=== PATIENT | male | born 1955 | race Caucasian/White ===

== ENCOUNTER 2017-04-21 10:37 | Outpatient (CLI) | payer OTHER ==
[~2017-04-21] VITALS: Ht 180.3 cm; Wt 104.5 kg
--- NOTE | ~2017-04-21 | HEMODYNAMI ---
PATIENT:BAKARI JOYA MEDICAL RECORD: [id number] : 53 LOCATION:D.CAT ADMISSION DATE: 04/21/17 Generatedon:04/21/201713:53 Patient name: BAKARI JOYA Patient #: [id number] SSN: D OB: 1955 Date of study: 04/21/2017 Page: Of Hemodynamic Procedure Report Patient Data Patient Demographics Procedure consent was obtained First Name: BAKARI Gender: Male Last Name: TOAN : 1955 Middle Initial: WILLIE Age: 61 year(s) Patient #: [id number] Race: Unknown Additional ID: [id number] Contact details [address]: [address] [place] [address] [place] State: [place] City: [place] Zip code: [address] Admission Admission Data Admission Date: 04/21/2017 Admission Time: 10:37 Procedure Procedure Types Cath Procedure Peripheral Cath Diagnostic Procedure Cath Peripheral Qtwrz-Xpwocqh-Ddh-Off Procedure Description Procedure Date Procedure Date: 04/21/2017 Procedure Start Time: 13:33 Procedure Staff Name Function Nicholas Sena MD Performing Physician Mylene Daley RN Nurse Shell Alves RT Scrub Sanjay Phelan RT Monitor Procedure Data Cath Procedure Fluoroscopy Diagnostic fluoroscopy Total fluoroscopy Time: 2.9 time: 2.9 min min Diagnostic fluoroscopy Total fluoroscopy dose: 341 dose: 341 mGy mGy Contrast Material Contrast Material Type Amount (ml) Isovue 300 73 Entry Location Entry Primary Successful Side Size Upsize Upsize Entry Closure Succes sful Closure Location (Fr) 1 (Fr) 2 (Fr) Remarks Device Remarks Femoral Right 5 Fr Exoseal artery Diagnostic catheters Device Type Used For End Catheter Placement Cordis Tempo 5Fr UF Lower extremity catheter arteriography Diagnostic Infinity 5Fr Lower extremity IM catheter arteriography Procedure Medications Medication Administration Route Dosage Oxygen NC 2 l/min Lidocaine 2% added to field 20 Heparin Flush Bag added to field 2 bags (1000units/500ml NS) 0.9% NaCl I.V. 100 ml/hr Versed I.V. 1 mg Fentanyl I.V. 50 mcg Versed I.V. 1 mg Fentanyl I.V. 50 mcg Fentanyl I.V. 50 mcg Hemodynamics Rest Heart Rate: 74 (bpm) Snapshots Pre Cath Intra NCS Post Cath Vital Signs Time Heart Resp SPO2 NIBP (mmHg) Rhythm Pain Sedation Rate (ipm) (%) Status Level (bpm) 13:16:04 71 15 98 149/95(128) NSR 0 (11) 10(A) , No pain 13:20:24 69 16 99 150/93(129) NSR 0 (11) 10(A) , No pain 13:24:40 73 16 98 142/89(112) NSR 0 (11) 10(A) , No pain 13:28:56 66 15 98 143/83(99) NSR 0 (11) 10(A) , No pain 13:33:10 67 15 99 141/88(119) NSR 0 (11) 9(A) , No pain 13:37:22 65 17 94 129/84(121) NSR 0 (11) 9(A) , No pain 13:41:34 65 16 99 139/92(113) NSR 0 (11) 9(A) , No pain 13:45:46 69 15 99 127/89(114) NSR 0 (11) 10(A) , No pain 13:50:02 66 18 99 135/80(118) NSR 0 (11) 10(A) , No pain Medications Time Medication Route Dose Verified Delivered Reason Notes Effe ctiveness by by 13:15:04 Oxygen NC 2 Nicholas Buffie used for l/min Nathen Daley RN procedure 13:20:38 Lidocaine 2% added 20ml Nicholas Nicholas for local to vial Nathen Sena MD anesthetic field 13:20:44 Heparin Flush added 2 Nicholas Nicholas used for Bag to bags Nathen Sena MD procedure (1000units/500ml field NS) 13:20:54 0.9% NaCl I.V. 100 Nicholas Buffie Per ml/hr Nathen Daley RN physician 13:31:23 Versed I.V. 1 mg Nicholas Buffie for Nathen Daley RN sedation 13:31:28 Fentanyl I.V. 50 Nicholas Buffie for mcg Nathen Daley RN sedation 13:34:24 Versed I.V. 1 mg Nicholas Buffie for Nathen Daley RN sedation 13:34:28 Fentanyl I.V. 50 Nicholas Richie for kasey Daley RN sedation 13:43:17 Fentanyl I.V. 50 Nicholas Richie for kasey Daley RN sedation Procedure Log Time Note 13:01:47 Sanjay Phelan RT (R) (CV) sent for patient. Start room use. 13:06:33 Time tracking: Regular hours 13:06:37 Plan of Care:Hemodynamics will remain stable., Cardiac rhythm will remain stable., Comfort level will be maintained., Respiratory function will remain adequate., Patient/ family verbilizes understanding of procedure., Procedure tolerated without complication., Recovers from procedure without complications.. 13:06:42 Patient received from Pre/Post Procedure Room to CCL 2 Alert and oriented. Tansferred to table in Supine position. 13:06:44 Warm blankets applied, and junaid hugger turned on for patient comfort. 13:06:44 Correct patient and procedure confirmed by team. 13:06:46 Signed procedure consent form obtained from patient. 13:06:47 ECG and BP/O2 sat monitors applied to patient. 13:06:47 Full Disclosure recording started 13:06:48 - 13:06:51 H&P Date Dictated: 04/21/2017 H&P Addendum completed by physician on day of procedure. (MUST COMPLETE FOR ALL OUTPATIENTS). 13:06:52 Pre-procedure instructions explained to patient. 13:06:53 Pre-op teaching completed and patient verbalized understanding. 13:06:54 Family in waiting room. 13:06:56 Patient NPO since Midnight. 13:06:59 Is the patient allergic to Iodine/contrast media? No. 13:07:16 Use device set Femoral Dx 13:07:17 Acist Syringe opened to sterile field. 13:07:18 Bag Decanter opened to sterile field. 13:07:18 Medline Cath Pack opened to sterile field. 13:07:20 Terumo 5Fr [place] Sheath opened to sterile field. 13:07:20 St Curt 260cm J .035 wire opened to sterile field. 13:07:22 Acist Hand Control opened to sterile field. 13:07:23 Acist Manifold opened to sterile field. 13:07:23 Diagnostic Infinity 5Fr Multipack catheter opened to sterile field. 13:07:24 Tegaderm 4 x 4 opened to sterile field. 13:11:03 Patient diabetic? No. 13:11:06 - 13:11:06 ----Pre-sedation anethsthesia assessment.---- 13:11:08 Previous problem with sedation/anesthesia? No ? 13:11:10 Snore? Yes 13:11:11 Sleep apnea? No 13:11:13 Deviated septum? No 13:11:14 Opens mouth fully? Yes 13:11:15 Sticks out tongue? Yes 13:11:17 Airway obstruction? No ? 13:11:21 Pre procedure: right dorsailis pedis pulse Doppler 13:11:24 Pre procedure: left dorsailis pedis pulse Doppler 13:11:29 Patient pain scale 0/10 no pain. 13:11:34 IV patent on arrival in left forearm with 0.9% NaCl at [facility]. 13:14:49 Vital chart was started 13:15:04 Oxygen 2 l/min NC was administered by Mylene Daley RN; used for procedure; 13:20:34 Bilateral groins area was prepped with chlora-prep and draped in steril e fashion 13:20:36 Alarms reviewed by R. N. 13:20:37 Sharps counted by scrub and verified by R.N. 13:20:38 Lidocaine 2% 20ml vial added to field was administered by Nicholas Sena MD ; for local anesthetic; 13:20:44 Heparin Flush Bag (1000units/500ml NS) 2 bags added to field was administered by Nicholas Sena MD; used for procedure; 13:20:54 0.9% NaCl 100 ml/hr I.V. was administered by Mylene Daley RN; Per physician; ::18 Baseline sample Acquired. ::25 Rhythm: sinus rhythm :: Physician arrived 13:: --------ALL STOP TIME OUT------ :: Final Timeout: patient, procedure, and site verified with staff and physician. All members of the team are in agreement. :: Bilateral groins site verified by team. :: Physical assessment completed. ASA score P 2 - A patient with mild systemic disease as per Nicholas Sena MD. 13::38 Sedation plan: IV Moderate Sedation Versed, Fentanyl 13:31:10 Zero performed for pressure channel P1 ::23 Versed 1 mg I.V. was administered by Mylene Daley RN; for sedation; 13:31:28 Fentanyl 50 mcg I.V. was administered by Mylene Daley RN; for sedation; 13:32:50 Procedure started. 13:33:01 Local anesthetic to right femoral artery with Lidocaine 2% by Nicholas sewell MD.INITIAL ACCESS ONLY 13:34:24 Versed 1 mg I.V. was administered by Mylene Daley RN; for sedation; 13:34:28 Fentanyl 50 mcg I.V. was administered by Mylene Daley RN; for sedation; 13:34:58 Sheath removed intact; hemostasis achieved with Exoseal to the Right Femoral artery. 13:36:05 A Cordis Tempo 5Fr UF catheter was advanced over the wire and used for Lower extremity arteriography. 13:37:34 Abdominal Aortagram was performed. 13:37:37 Right leg runoff performed. 13:37:38 Left leg runoff performed. 13:41:00 A Diagnostic Infinity 5Fr IM catheter was advanced over the wire and used for Lower extremity arteriography. 13:42:03 Terumo ANGLE 260cm glide wire opened to sterile field. 13:43:17 Fentanyl 50 mcg I.V. was administered by Mylene Daley RN; for sedation; 13:45:08 Cordis 5Fr Exoseal opened to sterile field. 13:46:58 A 5 Fr sheath was inserted into the Right Femoral artery 13:47:29 Procedure ended.(Physican Out) 13:48:43 Fluoroscopy time 02.90 minutes. 13:48:48 Fluoroscopy dose: 341 mGy 13:48:48 Flurop Dose total: 341 13:48:52 Contrast amount:Isovue 300 73ml. 13:48:54 Sharps counted by scrub and verified by R.N. 13:48:55 Insertion/operative site no bleeding no hematoma. 13:48:58 Post-op/insertion site Right Femoral artery dressed using a 4 x 4 and Tegaderm. 13:49:01 Post right femoral artery:stable 13:49:07 Post-procedure physical assessment completed. ASA score P 2 - A patient with mild systemic disease as per Nicholas Sena MD. 13:49:09 Post Procedure Pulses reassessed and unchanged 13:49:13 Post procedure instruction explained to patient.Patient verbalizes understanding. 13:51:44 Procedure and supply charges have been captured, reviewed, submitted an d are correct. 13:52:58 Report given to Pre/Post Procedure Room. 13:53:03 Patient transfered to Pre/Post Procedure Room with Stretcher. 13:53:28 Vital chart was stopped Device Usage Item Name Manufacture Quantity Catalog Hospital Part Current Minimal Lo t# / Number Charge Number Stock Stock Serial# Code Acist Acist 1 [id number] 400486 982325 176418 20 Syringe [employer] Bag Microtek 1 2002S 778507 85499 502363 5 Decanter [employer] Medline Cardinal 1 [id number] 320740 53718 476206 5 Cath Pack Health Terumo 5Fr Terumo 1 [id number] 436331 069549 377855 [address] [place] [address] Curt 1 [id number] 141490 072867 861654 30 260cm J .035 wire Acist Hand Acist 1 43490 880000 690820 511810 5 Control [employer] Inc Acist Acist 1 54170 470837 902741 295149 5 Manifold [employer] Diagnostic Cardinal 1 [id number] 172290 55034 067651 30 Biodesix 5Fr Multipack catheter Tegaderm 4 3M 1 1626W 827385 577898 396619 5 x 4 Cordis Cardinal 1 [id number] 196277 892830 222217 10 Tempo 5Fr Health UF catheter Diagnostic Cardinal 1 [id number] 325976 943731 750570 5 Biodesix 5Fr IM catheter Terumo Terumo 1 [id number] 142010 158186 938507 5 ANGLE 260cm glide wire Cordis 5Fr Cardinal 1 EX500 615190 465007 931131 10 17 356293 Exoseal Health Signature Audit [place] Stage Time Signature Unsigned Intra-Procedure 04/21/2017 Sanjay 1:53:25 PM Zhane RT (R) (CV) Signatures Monitor : Sanjay Signature : Zhane RT Date : Time : [facility] [address] [facility], [facility]
[2017-04-21] MEDS ORDERED: ROBAXIN-750750 MG PO (11:07)
[2017-04-21] MEDS ORDERED: LOTREL 10/20 CA1 CAP PO (11:07)
[2017-04-21] MEDS ORDERED: LIPITOR20 MG PO (11:07)
[2017-04-21 11:17] VITALS: BP 146/89; Ht 180.3 cm; Wt 104.5 kg
[2017-04-21 11:20] LABS: BASOPHILS 0.2 % (0-2); HEMATOCRIT 41.7 % (42.0-54.0); HEMOGLOBIN 14.8 g/dL (13.5-17.5); IMMATURE GRANULOCYTES 0.2 % (0-5); LYMPHOCYTES 23.7 % (15-50); MCH 32.4 pg (26.0-34.0); MCHC 35.5 g/dL (31.0-37.0); MCV 91.2 fL (80.0-100.0); MEAN PLATELET VOLUME 9.9 fL (7.4-10.4); MONOCYTES 9.4 % (2-11); NEUTROPHILS 65.5 % (40-80); PLATELET COUNT 213 10x3/uL (130-400); RBC 4.57 10x6/uL (4.20-6.10); RDW 12.4 % (11.5-14.5); WBC 6.3 10x3/uL (4.8-10.8)
[2017-04-21 11:27] LABS: ANION GAP 13.1 mmol/L (8-16); CALCIUM 8.9 mg/dL (8.5-10.1); CARBON DIOXIDE 26.1 mmol/L (21.0-32.0); CREATININE - SERUM 1.3 mg/dL (0.6-1.3); POTASSIUM - SERUM 4.2 mmol/L (3.5-5.1)
--- NOTE | 2017-04-21 14:00 | NUR ---
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 VSS WITH CHEST PAIN DENIED INSTRUCTED PATIENT TO KEEP HEAD FLAT ON PILLOW WITH RLE STRAIGHT
--- NOTE | 2017-04-21 14:19 | NUR ---
VSS WITH CHEST PAIN DENIED 5 FR EXOSEAL R/GROIN CDI NO BLEEDING NO HEMATOMA NOTED. FAMILY AT SIDE
--- NOTE | 2017-04-21 14:58 | NUR ---
5 FR EXOSEAL R/GROIN CDI NO BLEEDING NO HEMATOMA NOTED. CHEST PAIN IS DENIED VSS
--- NOTE | 2017-04-21 15:30 | NUR ---
5 FR EXOSEAL R/GROIN CDI NO BLEEDING NO HEMATOMA NOTED. CHEST PAIN IS DENIED VSS WITH FAMILY AT SIDE
--- NOTE | 2017-04-21 16:02 | NUR ---
REPOSITIONED TO SITTING WITH HOB UP 45 DEGREES CHEST PAIN DENIED. 5 FR EXOSEAL R/GROIN CDI NO BLEEDING NO HEMATOMA NOTED.
--- NOTE | 2017-04-21 16:41 | NUR ---
VERBAL AND WRITTEN DISCHARGE GONE OVER WITH PATIENT AND CHEST PAIN IS DENIED. 5 FR EXOSEAL R/GROIN CDI NO BLEEDING NO HEMATOMA NOTED. TRANSPORTED VIA WC TO PARKING FOR DISCHARGE HOME
== END 2017-04-21 16:43 | disposition home or self-care (01) ==
LOC: D.CATH 10:37
PROVIDERS: Internal Medicine Cardiovascular Disease
DX: I70.213 Atherosclerosis of native arteries of extremities with intermittent claudication, bilateral legs (principal); Z01.812 Encounter for preprocedural laboratory examination